=== PATIENT | female | born 1970 | race African-American/Black ===

== ENCOUNTER 2020-09-14 13:37 | Emergency (ER) | payer OTHER ==
[~2020-09-14] VITALS: Ht 152.4 cm; Wt 93.4 kg
[2020-09-14 13:44] VITALS: BP 160/99
[2020-09-14 15:14] LABS: Urine Bacteria NONE SEEN /hpf (None Seen); Urine Blood 1+ /uL (Negative); Urine Specific Gravity 1.017 (1.001-1.035); Urine WBC 4 /hpf (0 - 5)
== END 2020-09-14 15:54 | disposition home or self-care (01) ==
LOC: EDBD 13:37 → ER 13:37
DX: O26.891 Other specified pregnancy related conditions, first trimester (principal); O09.91 Supervision of high risk pregnancy, unspecified, first trimester; R10.9 Unspecified abdominal pain; O16.1 Unspecified maternal hypertension, first trimester; O99.331 Smoking (tobacco) complicating pregnancy, first trimester; Z3A.13 13 weeks gestation of pregnancy
CPT/HCPCS: 36415; 81001; 84702; 99283; J7030